=== PATIENT | female | born 1950 | race American Indian/Alaskan Native ===

== ENCOUNTER 2017-03-05 17:30 | Inpatient (IN) | payer MEDICARE, MEDICAID ==
[~2017-03-05] VITALS: Ht 162.6 cm; Wt 71.4 kg
--- NOTE | ~2017-03-05 | HP ---
PATIENT'S NAME: ALEXA VALLESA [facility] AGE: 66 Y [address] ROOM: [id number] [place], [place] [address] [facility] ADMIT DATE: 03/05/2017 History & Physical DISCHARGE DATE: FAMILY PHYSICIAN: PHYSICIAN, UNKNOWN ATTENDING PHYSICIAN: Gerald FLORES DATE OF SERVICE: CHIEF COMPLAINT: Hyperkalemia. HISTORY OF PRESENT ILLNESS: The patient is a 66-year-old female with past medical history of ESRD, on hemodialysis; coronary artery disease, status post PCI; diabetes mellitus; and hypertension, who presents here from [facility] in [place] with hyperkalemia. The patient gets hemodialysis on Thursday, , and Thursday. However, the patient missed Thursday's session as she was in [place] and had a car problem to return back to [place] to have her session of hemodialysis. Today she presented to [facility] with complaints of nausea, vomiting, fatigueness, and three-day history of diarrhea. On initial evaluation in the emergency department, the patient was found to have a creatinine of 10.7, BUN of 90, and potassium of 7.7, with EKG changes of prolonged PA interval , prolonged QT and prolonged QTc compared to recent EKG, the patient was initially given 1 g of calcium gluconate and 5 units of regular IV. The patient subsequently was given another gram of calcium gluconate en route and also 10 units of insulin with D50. The patient was also placed on of continuous albuterol for the potassium. The patient was transferred to our hospital for emergent hemodialysis. The patient reports that for the past few days she has been experiencing diarrhea. She reports the diarrhea is nonbloody. She reports that she had 6 episodes of diarrhea yesterday and 3 episodes of diarrhea today. She denies any sick contacts or recent use of antibiotics. The patient also reports of one episode of nausea and vomiting today. The patient denies any shortness of breath, headache, fever, chills, abdominal pain, productive cough, or dizziness. The patient reports that she is mostly compliant with her medications and her dialysis. PAST MEDICAL HISTORY: 1. Diabetes mellitus, type 2. 2. Hypertension. 3. ESRD. 4. COPD. [facility] 66 Y [address] ROOM: [place] [id number] LOCATION: GPCU ADMIT DATE: 03/05/2017 History & Physical DISCHARGE DATE: FAMILY PHYSICIAN: PHYSICIAN, UNKNOWN ATTENDING PHYSICIAN: Gerald FLORES 5. CAD status post PCI. 6. Peripheral vascular disease status post PCI. 7. History of right gangrene status post AKA. PAST SURGICAL HISTORY: 1. Right AKA. 2. Left AV fistula placement. 3. Cholecystectomy. 4. CAD status post PCI. 5. PVD status post stenting. 6. Peritoneal dialysis placement. 7. Peritoneal dialysis removal. FAMILY HISTORY: Mother had history of heart failure and diabetes mellitus. Father also has a history of diabetes mellitus. SOCIAL HISTORY: The patient is a former smoker and does not smoke currently. She denies drinking. The patient is retired and disabled. However, used to work as a cook. The patient lives in [place] with her daughter. CURRENT MEDICATIONS: Medications currently being reconciled. REVIEW OF SYSTEMS: All systems have been reviewed and are negative except for what I mentioned in the HPI. PHYSICAL EXAMINATION: VITAL SIGNS: Temperature 97.4, blood pressure 104/88, heart rate of 71, respiratory rate of 17, and 95% on 2 L. GENERAL APPEARANCE: The patient is sitting comfortably on a chair. Currently receiving hemodialysis. HEENT: Head; normocephalic and atraumatic. Extraocular muscles intact. Nose; no nasal discharge. Ears; no ear discharge. Mouth; moist oral mucosa. HEART: Regular rate and rhythm. No murmurs, rubs, or gallops heard. CHEST: Bibasilar rales. No rhonchi or wheezing heard. ABDOMEN: Soft, nontender, nondistended. Bowel sounds present. SKIN: Warm to touch. EXTREMITIES: Right AKA and left-sided venous stasis changes. Also have an AV fistula on the left forearm. MUSCULOSKELETAL: No obvious joint effusion noted. PHARMACY COORDINATOR: The patient is alert and oriented x3. Motor and sensory grossly intact. PATIENT'S NAME: FAN VALLES [facility] AGE: 66 Y [address] ROOM: [place] [id number] LOCATION: GPCU ADMIT DATE: 03/05/2017 History & Physical DISCHARGE DATE: FAMILY PHYSICIAN: PHYSICIAN, UNKNOWN ATTENDING PHYSICIAN: Gerald FLORES LABORATORY DATA: Labs done at the outside hospital shows a sodium of 140, potassium of 7.7, CO2 of 27.4, BUN of 90, creatinine of 10.7, and blood glucose of 198. Also shows hemoglobin of 10.5, platelets of 151,000, and white blood cell count of 7.6. EKG shows first-degree AV block with PA of 250 with QRS of 183, and the QTc of 607. Compared to EKG that was done at the end of 09/22/2016 shows elongation of PA, QTc, and QRS. Chest x-ray done at the outside hospital shows cardiomegaly. ASSESSMENT AND PLAN: 1. Hyperkalemia, etiology secondary to end-stage renal disease and the patient missing dialysis. The patient has already received 2 g of calcium gluconate, 15 units of insulin regular, and D50. The patient was also placed on bronchodilator at the [facility]. The patient currently is getting hemodialysis. The patient's hyperkalemia is associated with EKG changes of PA elongation, QRS elongation, and QTc elongation. To continue with hemodialysis. Nephrology consultation placed and discussed with Dr. Nelson. To acquire renal function panel post dialysis and also acquire EKG post dialysis. 2. End-stage renal disease. Continue dialysis. Nephrology consulted. 3. Diabetes mellitus, type 2. The patient is currently on detemir. At home will continue detemir 5 units in a.m. and continue sliding scale insulin. We will also place the patient on a diabetic diet. 4. Diarrhea most likely secondary to uremic diarrhea or secondary to diabetes mellitus. However, due to the patient's history of hemodialysis and been in and out of the hospital, we will rule out Clostridium difficile. 5. Nausea and vomiting, etiology most likely secondary to uremia. Should improve with dialysis. 6. History of coronary artery disease, status post percutaneous coronary intervention. Continue aspirin, Plavix, and statin. 7. Peripheral vascular disease. Continue aspirin, statin, and Plavix. 8. Diabetic neuropathy. Continue on gabapentin. 9. Depression. Continue duloxetine. 10. Chronic back pain. The patient is currently on Percocet. Continue Percocet as needed. 11. Elevated QTc. To avoid use of QTc elongation medication. To repeat EKG after dialysis. Greater than 70 minutes were spent on the patient's care. Greater than 50% of the time was spent on direct patient's care. Case was discussed with Dr. Nelson, enrollment management coordinator. Also case was discussed initially with Dr. Murray from PATIENT'S NAME: FAN VALLES [facility] AGE: 66 Y [address] ROOM: [place] [address] [facility] ADMIT DATE: 03/05/2017 History & Physical DISCHARGE DATE: FAMILY PHYSICIAN: PHYSICIAN, UNKNOWN ATTENDING PHYSICIAN: Gerald FLORES [facility] in [place]. Assessment and plan was discussed with the patient. The patient's questions were answered with satisfaction. We will admit the patient for hyperkalemia. To continue hemodialysis. Code status was discussed on admission. Code status is a full code. GERALD FLORES MD DA/modl /[id number] D: [id number] T: [id number] HISTORY & PHYSICAL
--- NOTE | ~2017-03-05 | CON ---
PATIENT'S NAME: FAN VALLES [facility] AGE: 66 Y [address] ROOM: [address] [address] LOCATION: GPCU ADMIT DATE: 03/05/2017 Consultation DISCHARGE DATE: 03/06/2017 FAMILY PHYSICIAN: Physician, Unknown ATTENDING PHYSICIAN: Gerald Elizabeth DATE OF CONSULTATION: 03/05/2017 REFERRING PHYSICIAN: Juan Brown MD REQUESTING PHYSICIAN: The hospitalist. REASON FOR CONSULTATION: End-stage renal failure. The patient is due for dialysis treatment. HISTORY OF PRESENT ILLNESS: The patient is a 66-year-old white female with a history of end-stage renal failure from diabetic nephropathy. She is currently on hemodialysis for the last 7 years. The patient dialyzes through her left upper arm AV fistula on Tuesdays, , and Saturdays. She had her car break down last Thursday and she missed her dialysis. Today, she was having severe weakness of her lower extremity, she went to the local emergency room in [place] and she was noted to have a potassium of 7.5. She was then transferred to [facility] for further management. I have been asked to see her because she needs to have dialysis treatment. REVIEW OF SYSTEMS: GENERAL: She denies any fever or chills. HEENT: Denies any sore throat or sinus congestion. CARDIOVASCULAR: Denies chest pain or dyspnea on exertion. RESPIRATORY: Denies any shortness of breath, cough, or wheezing. GI: Denies any abdominal pain, nausea, or vomiting. : Denies any dysuria. She does not make any urine. MUSCULOSKELETAL: She has generalized weakness, especially in her lower extremities. SKIN: Denies any rash or pruritus. Denies any allergies or hay fever. LYMPHATIC/HEMATOLOGIC: Denies any lymph node enlargement or easy bruising. Denies any heat or cold intolerance. PSYCHIATRIC: Denies any sadness, crying spells, poor concentration, or panic attack. PAST MEDICAL HISTORY: Diabetes mellitus; hypertension; end-stage renal failure; COPD; coronary artery disease; and peripheral vascular disease, status post right above knee amputation. PATIENT'S NAME: FAN VALLES [facility] AGE: 66 Y [address] ROOM: [place] [address] LOCATION: GPCU ADMIT DATE: 03/05/2017 Consultation DISCHARGE DATE: 03/06/2017 FAMILY PHYSICIAN: Physician, Unknown ATTENDING PHYSICIAN: Gerald Elizabeth PAST SURGICAL HISTORY: Right above-knee amputation, left upper extremity AV fistula placement, cholecystectomy, cardiac catheterization with stent placement, and peritoneal dialysis catheter placement and removal. FAMILY HISTORY: No family history of kidney disease or dialysis. SOCIAL HISTORY: The patient lives in [facility] with her daughter. She is a former smoker. Does not drink any alcohol. ALLERGIES: NO KNOWN DRUG ALLERGIES. MEDICATIONS: Refer med reconciliation and it is placed in her chart. PHYSICAL EXAMINATION: GENERAL: This is a 66-year-old female, sitting in the chair, looks pale, but not in acute distress. VITAL SIGNS: Temperature 97.7, pulse 83, systolic blood pressure 100 and diastolic 57, and respiratory rate of 18. HEENT: Head is normocephalic. Pupils are round and equal. Normal eyelid and oral cavity clear. Moist mucosa. Trachea central. No thyromegaly. No bruit. HEART: Sounds are audible in all the areas without any gallop or murmur. There is no pericardial rub. Pulse is regular in rhythm. LUNGS: Bilaterally clear to auscultate. No intercostal retraction. ABDOMEN: Soft, nontender. Cannot palpate any liver or spleen. EXTREMITIES: No clubbing or cyanosis. SKIN: No sign of vasculitis. She has left upper arm AV fistula with positive thrill. EXTREMITIES: The patient has right [id number] amputation. LABORATORY DATA: Glucose 144, BUN of 30, creatinine of 5.3, sodium 137, potassium 4.0, chloride 96, bicarb 30, calcium 7.4, albumin 2.8. ASSESSMENT: 1. End-stage renal failure, on hemodialysis. 2. Severe hyperkalemia. 3. Hyperphosphatemia. 4. Anemia of chronic kidney disease. 5. Coronary artery disease. PATIENT'S NAME: FAN VALLES [facility] AGE: 66 Y [address] ROOM: [place] [address] LOCATION: GPCU ADMIT DATE: 03/05/2017 Consultation DISCHARGE DATE: 03/06/2017 FAMILY PHYSICIAN: Physician, Unknown ATTENDING PHYSICIAN: Gerald Elizabeth 6. Peripheral vascular disease. PLAN: I will obtain her outpatient dialysis record and start her on hemodialysis as soon as possible. She will be on 2 K and 2.2 calcium bath with a goal ultrafiltration based on her dry weight. I would like to thank the hospitalist for allowing me to participate in this patient's care. M MD ANIRUDH AGUIAR/tristin /[id number] d: 03/06/17 2255 t: 03/30/17 0934, CONSULTATION REPORT
[2017-03-05] MEDS ORDERED: TYLENOL325 MG PO (21:53)
[2017-03-05] MEDS ORDERED: PROVENTIL OR V6.7 GM INH (21:54)
[2017-03-05] MEDS ORDERED: PROVENTIL2.5 MG/0.5 INH (21:55)
[2017-03-05] MEDS ORDERED: MYLANTA (MAG-AL30 ML PO (21:56)
[2017-03-05] MEDS ORDERED: AQUAPHOR1 GM TOP (22:09)
[2017-03-05] MEDS ORDERED: LIPITOR20 M1 PO (22:10)
[2017-03-05] MEDS ORDERED: ASPIRIN LO-DOSE81 MG PO (22:10)
[2017-03-05] MEDS ORDERED: BENADRYL ALLERG25 MG PO (22:13)
[2017-03-05] MEDS ORDERED: DEXILANT60 MG PO (22:14)
[2017-03-05] MEDS ORDERED: CLARITIN10 MG PO (22:14)
[2017-03-05] MEDS ORDERED: CYMBALTA20 MG PO (22:14)
[2017-03-05] MEDS ORDERED: FLONASE 50 MCG/16 GM NOSE (22:15)
[2017-03-05] MEDS ORDERED: NEURONTIN300 MG PO (22:15)
[2017-03-05] MEDS ORDERED: HUMALOG MI100 UNIT/5 SUB-Q (22:16)
[2017-03-05] MEDS ORDERED: ACIDOPHILUS LA1 EAC1 PO (22:17)
[2017-03-05] MEDS ORDERED: LEVEMIR100 UNIT/1 SUB-Q (22:18)
[2017-03-05] MEDS ORDERED: LIDOCREAM15 GM TOP (22:22)
[2017-03-05] MEDS ORDERED: LOMOTIL1 TAB PO (22:23)
[2017-03-05] MEDS ORDERED: MIRALAX17 GM PO (22:23)
[2017-03-05] MEDS ORDERED: NEPHROCAPS SOFTG1 MG PO (22:23)
[2017-03-05] MEDS ORDERED: NITROGLYCERIN0.4 MG SL (22:24)
[2017-03-05] MEDS ORDERED: MYCOLOG OINTMEN15 GM TOP (22:25)
[2017-03-05] MEDS ORDERED: PLAVIX75 MG PO (22:26)
[2017-03-05] MEDS ORDERED: PERCOCET 5-3251 EACH PO (22:26)
[2017-03-05] MEDS ORDERED: RENAGEL800 MG PO (22:27)
[2017-03-05] MEDS ORDERED: SELENIUM SULFI120 ML TOP (22:29)
[2017-03-05] MEDS ORDERED: ZOFRAN4 MG PO (22:30)
--- NOTE | 2017-03-05 22:50 | NUR ---
Pt admitted post HD. 2L pulled off in HD. lives at home. recently traveled to [place]. ra normally-requring o2 at this time. R AKA. Multiple skin issues.
[2017-03-05 23:04] LABS: ALBUMIN 3.8 gm/dL (3.5-5.0); CALCIUM 7.4 mg/dL (8.5-10.5); CREATININE 5.3 mg/dL (0.5-1.1); TOTAL BILIRUBIN 0.6 mg/dL (0.0-1.5); TOTAL PROTEIN 8.1 g/dL (6.0-8.4)
[2017-03-06 04:40] LABS: ALBUMIN 3.2 gm/dL (3.5-5.0); ANION GAP 14.7 (10.0-19.0); PHOSPHORUS 5.8 mg/dL (2.5-4.9); POTASSIUM 4.7 mMol/L (3.7-5.1); TOTAL BILIRUBIN 0.5 mg/dL (0.0-1.5); TOTAL PROTEIN 7.1 g/dL (6.0-8.4)
--- NOTE | 2017-03-06 04:41 | NUR ---
Pt a/o, but sleepy. arouses easy. does like to "play possum". VSS, afebrile. needed 2L- takes off. could use a sleep study. achs checks. renal diet. multiple skin issues. r aka. uses w/c-personal in room. repositions self. Plan: ? HD again at 0830. really needs woc consult.
[2017-03-06 04:45] LABS: CALCIUM 7.2 mg/dL (8.5-10.5); CREATININE 6.2 mg/dL (0.5-1.1)
--- NOTE | 2017-03-06 15:30 | NUR ---
Notified patient can go home today, but says she doesn't have a ride. Introduced self and role of care management to patient. She lives in [place] with family. Says their car is broke and no one else can come get her. Told her I can call [facility] and see if they can transport her. She says she uses them to go to dialysis. Told her I will call and see if they are available. Asked her if she uses [facility], why did she have trouble getting to dialysis this week. She then tells me she doesn't like us or this hospital. Told her I was sorry she feels that way, but trying to understand why she missed her dialysis treatment. She says she was in [place] with her daughter and her car broke down and they couldn't get home. Asked her if she contacted the dialysis clinic when she got back to see if they could get her in for a dialysis run. She again tells me she doesn't really like us and turns away from me. Told her I was just trying to make sure she was able to get the treatment she needs and to avoid being in the hospital away from home if needed. Contacted [employer] and they will be able to pick her up between 1600 and 1630 and it will be action cab transporting her. Gave them the charge nurse's number for the lyft driver to call when he is here. Updated charge nurse. Updated Dr. Escobedo and he will come finish the orders. Updated patient. Patient to discharge home today via [email or web address].
--- NOTE | 2017-03-06 17:22 | NUR ---
PATIENT DISMISSED TODAY AT 16:25 PER [facility]. PATIENT HAD DIALYSIS TODAY AND RETURNED TO PCU. PATIENT REFUSED TO TAKE SCHEDULED MEDICATIONS AFTER RETURNING FROM DIALYSIS. PATIENT WAS STATING SHE WAS WANTED TO GO OUTSIDE AND SMOKE. DISCHARGE ORDERS WERE OBTAINED AND RIDE WAS ARRANGED FOR PATIENT. REVIEWED DISMISSAL INSTRUCTIONS WITH PATIENT AND SHE VERBALIZED UNDERSTANDING. PATIENT ASSISTED TO VEHICLE BY NURSE AID BY W/C.
== END 2017-03-06 16:15 | disposition disaster alternative care site (69) | DRG 640 ==
LOC: GPCU 18:00
PROVIDERS: ADMIT Internal Medicine
DX: E87.5 Hyperkalemia (principal); N18.6 End stage renal disease; E11.22 Type 2 diabetes mellitus with diabetic chronic kidney disease; I12.0 Hypertensive chronic kidney disease with stage 5 chronic kidney disease or end stage renal disease; Z99.2 Dependence on renal dialysis; D63.1 Anemia in chronic kidney disease; I25.10 Atherosclerotic heart disease of native coronary artery without angina pectoris; I73.9 Peripheral vascular disease, unspecified; Z89.619 Acquired absence of unspecified leg above knee; Z87.891 Personal history of nicotine dependence; Z79.82 Long term (current) use of aspirin
CPT/HCPCS: J1100; J1644; J2405; P9047